=== PATIENT | female | born 1990 | race Caucasian/White ===

== ENCOUNTER 2019-06-05 10:18 | Emergency (ER) | payer SELFPAY ==
--- NOTE | 2019-06-05 10:45 | ER Document Report ---
HPI - HPI Patient complains to provider of: right ankle pain Time Seen by Provider: 06/05/19 10:41 Onset/Duration: Gradual, Persistent, Waxing and waning Quality of pain: Achy Severity: Moderate Pain Level: 3 Context: 28 Yr old female pt, with the listed pmh to include Subutex use, here for right ankle pain x 2 days. no numbness, weakness or tingling. no surgeries on this extremity. otc meds not helping much. She is on Subutex. She states she still has these. She did take one this morning. She states it did not improve her pain so she came in. she follows with dr chavez. She denies any actual fall or trauma. She is able to ambulate. She states a few days ago she had low back pain that radiated down her right leg that felt like her usual sciatica and grain loader triston pain however this pain feels a little different and she no longer has back pain or pain anywhere else in her leg. She has had no surgeries on the area. She actually states the pain feels better when she is walking and it hurts more when it is at rest. No chest pain or shortness of breath. no swelling. She denies . No pain anywhere else. no fevers. no hx of gout. no itching or redness. Hasn't sought care until now. denies intoxication. no other associated sx Associated Symptoms: Body/muscle aches. 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 Denies: Hx Peritoneal Dialysis Musculoskeletal Medical History: Reports Hx Arthritis, Denies Hx Gout, Reports Other - degenerative disc dz Skin Medical History: Reports None Psychiatric Medical History: Reports: Hx Attention Deficit Hyperactivity Disorder - on vyvanse Infectious Medical History: Reports: None Past Surgical History: Reports: Hx Cholecystectomy, Hx Orthopedic Surgery - back - Immunizations Immunizations up to date: Yes Vertical Provider Document - CONSTITUTIONAL Agree With Documented VS: Yes Exam Limitations: No Limitations General Appearance: WD/WN Notes: GENERAL_APPEARANCE: alert and oriented x 3, mood and affect wnl, cooperative, mild obvious discomfort. Pleasant, obese young white female, who appears slightly older than stated age, smiling, speaking in full sentences, in no sign of resp distress, easily sitting up, appears uncomfortable but not toxic. and two toddlers at bedside VITALS: reviewed, see vital signs table. HEAD: no_swelling\tenderness on the head, normocephalic, atraumatic NECK: supple, no_neck_tenderness. full rom and full strength. no sign of central cord syndrome, meningitis, or spinal cord involvement HEART: RRR LUNGS: CTAB, good air exchange diffusely BACK: no_back_tenderness EXTREMITIES: good pulse in all extremities, right ankle: has no ecchymosis/erythema, minimal to no swelling and mod ttp tenderness over the distal lateral malleolus. no ttp over the shirley bone, med mal, or 5th metatarsal, and no_abrasions\lacerations other than as noted. Full rom and full strength. slight antalgic gait secondary to pain only. 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 no other shortening or rotation of the limb or obvious deformities to suggest trauma unless otherwise noted. no other swelling or ttp. neg elías sign. neg cheema squeeze. no foot drop. no sign of gout, septic jt, or compartment syndrome. no sign of cellulitis. foot normal temperature to palpation. SKIN: warm, dry, good_color. no rash. no other grossly visible overlying skin changes to suggest trauma NEURO: motor_intact and sensory_intact in injured_extremity. cranial nerves 2- 12 intact Course - Re-evaluation Re-evalutation: 06/05/19 12:54 Pt here for likely right ankle contusion versus sprain. She is unaware of any injury. She states the pain is actually better when she walks on it and worse when she rests. She has had it for 2 days. No change in neurologic. No history of this before. She does take Subutex. Secondary to this I did inform her I would not be prescribing any narcotics to her today for pain. She denies any trauma or injury and I have low suspicion for acute fracture therefore x- rays were not obtained. The patient did not want any imaging as well. She did not want any forms of immobilization either. She was given Toradol here with some improvement of her symptoms. Advised symptomatic care. Rice therapy. Advised she needs to call her Subutex doctor if her current pain medicine regimen isn't controlling her pain for possible adjustment of her meds. She can also take Tylenol or ibuprofen [id number] in conjunction with her Subutex. Strict return precautions given. advised to f/u with pcp/pain management/dr chavez-her subutex prescriber in 1-2 days. return for any worsening symptoms. vss. well appearing. satting well on ra. neurononfocal. pt understands and agrees to plan. On reexam, pt improved with tx listed. remained stable. nontoxic. well appearing. pain controlled. tolerating po. requesting to go home. neurononfocal. Documentation achieved through voice recording which may lead to some occasional accidental typographical errors. Extensive efforts have been made to proof read documentation to make sure these are the least as possible. Category Date Time Status Ketorolac Tromethamine [Toradol Inj/Pf 60 mg/2 ml Sdv] Med 06/05/19 11:07 Once 60 mg IM NOW ONE - Vital Signs Vital signs: Temp Pulse Resp BP Pulse Ox 98.4 F 95 18 138/105 H 96 06/05/19 10:38 06/05/19 10:38 06/05/19 10:38 06/05/19 10:38 06/05/19 10:38 06/05/19 12:59 Temp Pulse Resp BP Pulse Ox 06/05/19 11:29 97.6 F 78 15 109/67 100 06/05/19 10:38 98.4 F 95 18 138/105 H 96 Discharge - Discharge Clinical Impression: Right ankle sprain Qualifiers: Encounter type: initial encounter Involved ligament of ankle: other ligament Qualified Code(s): S93.491A - Sprain of other ligament of right ankle, initial encounter Condition: Good Disposition: HOME, SELF-CARE Instructions: Ice Packs ([facility]), Sprained Ankle ([facility]) Additional Instructions: Follow-up with PCP/pain management/dr chavez in 1 to 2 days. Return for any worsening symptoms. tylenol or motrin as needed for any pain if not allergic in addition to your subutex. if your pain isn't controlled with your subutex and this regimen, call your prescribing doctor for possible adjustment of your medication. ice, elevate, and rest the area. Referrals: J LUIS,NO [Primary Care Provider] - Follow up as needed SERGIO CHAVEZ DO [NO LOCAL MD] - Follow up in 3-5 days
[2019-06-05] MEDS ORDERED: KETOROLAC TROMETHAMINE 60 MG/2 ML SDV IM ONE (11:07)
[2019-06-05 11:33] VITALS: BP 109/67
== END 2019-06-05 11:34 | disposition home or self-care (01) ==
LOC: ER 10:18
DX: S93.491A Sprain of other ligament of right ankle, initial encounter (principal); X58.XXXA Exposure to other specified factors, initial encounter; F17.200 Nicotine dependence, unspecified, uncomplicated; Z90.49 Acquired absence of other specified parts of digestive tract; Z87.442 Personal history of urinary calculi
CPT/HCPCS: 99283; 96372; J1885